=== PATIENT | male | born 1995 | race African-American/Black ===

== ENCOUNTER → 2016-05-26 | Outpatient (CLI) | payer BC, OTHER ==
[~2016-05-26] VITALS: Ht 177.8 cm; Wt 120.5 kg
[2016-05-26 14:51] VITALS: BP 137/83; PULSE 58; Ht 177.8 cm; Wt 120.5 kg
== END | disposition home or self-care (01) ==
LOC: C.NEUR 13:30
PROVIDERS: ATTEND Internal Medicine Pulmonary Disease
DX: R06.83 Snoring (principal); G47.19 Other hypersomnia; R06.81 Apnea, not elsewhere classified

== ENCOUNTER → 2016-05-31 | Outpatient (CLI) | payer BC ==
--- NOTE | 2016-06-02 15:15 | POLYSOMNOGRAPH REPORT ---
CLINICAL DATA: A 21-year-old male with symptoms of sleep apnea with fatigue, snoring, and witnessed apnea. On the evening of 06/01/2016, a home sleep apnea test was performed using a El type 3 monitor. His BMI was 38.02. RECORDING RESULTS: Total recording time was 10 hours. The patient's estimated sleep time and patient monitoring time was 6 hours. RESPIRATORY DATA: Severe sleep apnea was documented. The LINWOOD was 62.3. There were 341 obstructive, and 12 mixed apneic episodes. There were 18 hypopneic episodes. The longest respiratory event recorded was 50 seconds. OXIMETRY DATA: Significant nocturnal hypoxemia was seen. Oxygen graham was 80%. Mean saturation was 92%. Time below 89% was 59 minutes. HEART RATE DATA: Heart rates ranged from 37 to 78 beats per minute. SNORING DATA: Snoring was recorded throughout the night. IMPRESSION: Severe obstructive sleep apnea/hypopnea with nocturnal hypoxemia. RECOMMENDATIONS: The patient will be referred for CPAP titration study. JUAN
== END | disposition home or self-care (01) ==
LOC: C.NEUR 09:25
PROVIDERS: ATTEND Internal Medicine Pulmonary Disease
DX: G47.33 Obstructive sleep apnea (adult) (pediatric) (principal)